=== PATIENT | female | born 1975 | race Caucasian/White ===

== ENCOUNTER 2018-05-08 15:34 | Emergency (ER) | payer MEDICARE, OTHER ==
[2018-05-08 15:43] VITALS: RESP 18
[2018-05-08 16:11] LABS: Amphetamine Screen,Urine Not Detected (NotDetected); Barbiturate Screen,Urine Not Detected (NotDetected); Benzodiazepines Screen,Urine Detected (NotDetected); Cocaine Screen,Urine Not Detected (NotDetected); Methadone Screen, Urine Not Detected (NotDetected); Opiate Screen,Urine Not Detected (NotDetected); Oxycodone Screen, Urine Not Detected (NotDetected); Phencyclidine Screen,Urine Not Detected (NotDetected); Tricyclic Antidepressant,Urine Not Detected (NotDetected); Urn Cannabinoid Scrn Detected (NotDetected)
--- NOTE | 2018-05-08 16:19 | ED ---
General Adult HPI - General Chief complaint: Psychiatric Symptoms Stated complaint: Mental health, petitioned Time Seen by Provider: 05/08/18 16:00 Source: patient, RN notes reviewed Mode of arrival: ambulatory Limitations: no limitations - History of Present Illness Initial comments: Is a 43-year-old female with a past medical history significant for PTSD and depression and anxiety and schizophrenia. Patient states she's not taking her medications because her mother will given to her. Patient was taken to the group home yesterday and was threatening to kill her self threatening to cut her wrists or jump in front of a semi-. Patient also was in the group home cell and had a bowel movement in the middle of the cell and spreading all over the sanchez. Patient admits to stuff but she says she is doing that because she does not ever medication. Patient states she's can continue having these thoughts if she doesn't get her medications. A petition was filled out at the group home yesterday by a social services manager. Patient denies any physical complaints - Related Data Home Medications Medication Instructions Recorded Confirmed Escitalopram [Lexapro] 20 mg PO DAILY 05/08/18 05/08/18 Gabapentin 800 mg PO BID 05/08/18 05/08/18 Levothyroxine Sodium [Synthroid] 50 mcg PO DAILY 05/08/18 05/08/18 Omeprazole 40 mg PO BID 05/08/18 05/08/18 Sucralfate [Carafate] 1 gm PO ACHS PRN 05/08/18 05/08/18 Ziprasidone [Geodon] 80 mg PO BID 05/08/18 05/08/18 clonazePAM [KlonoPIN] 1 mg PO QID 05/08/18 05/08/18 Allergies Allergy/AdvReac Type Severity Reaction Status Date / Time ketorolac [From Toradol] Allergy Rash/Hives Verified 05/08/18 16:55 Penicillins Allergy Rash/Hives Verified 05/08/18 16:55 prochlorperazine Allergy Unknown Verified 05/08/18 16:55 [From Compazine] Sulfa (Sulfonamide Allergy Rash/Hives Verified 05/08/18 16:55 Antibiotics) Review of Systems ROS Statement: Those systems with pertinent positive or pertinent negative responses have been documented in the HPI. ROS Other: All systems not noted in ROS Statement are negative. Past Medical History Past Medical History: GERD/Reflux, Thyroid Disorder Additional Past Medical History / Comment(s): peptic ulcer History of Any Multi-Drug Resistant Organisms: None Reported Past Surgical History: Appendectomy Past Psychological History: Anxiety, Depression, PTSD, Schizoaffective Disorder Smoking Status: Current every day smoker Past Alcohol Use History: None Reported Past Drug Use History: Marijuana General Exam - General Exam Comments Initial Comments: GENERAL: Patient is well-developed and well-nourished. Patient is nontoxic and well- hydrated and is in mild distress. ENT: Neck is soft and supple. No significant lymphadenopathy is noted. Oropharynx is clear. Moist mucous membranes. Neck has full range of motion without eliciting any pain. EYES: The sclera were anicteric and conjunctiva were pink and moist. Extraocular movements were intact and pupils were equal round and reactive to light. Eyelids were unremarkable. PULMONARY: Unlabored respirations. Good breath sounds bilaterally. CARDIOVASCULAR: There is a regular rate and rhythm without any murmurs gallops or rubs. ABDOMEN: Soft and nontender with normal bowel sounds. SKIN: Skin is clear with no lesions or rashes and otherwise unremarkable. NEUROLOGIC: Patient is alert and oriented x3. Cranial nerves II through XII are grossly intact. Motor and sensory are also intact. Normal speech, volume and content. Symmetrical smile. MUSCULOSKELETAL: Normal extremities with adequate strength and full range of motion. LYMPHATICS: No significant lymphadenopathy is noted PSYCHIATRIC: Patient is very anxious and does admit that she is making suicidal statements and does admit that she was spreading her stool all over the cell yesterday Limitations: no limitations Course Vital Signs 05/08/18 05/08/18 15:38 18:41 Temperature 98.5 F 98.6 F Pulse Rate 53 L 55 L Respiratory 18 18 Rate Blood Pressure 104/54 88/52 O2 Sat by Pulse 98 97 Oximetry Medical Decision Making - Medical Decision Making EPS evaluated the patient and decided the patient needs to be admitted. Patient received Geodon 20 mg IM. A bed was not available at our facility so the patient had be transferred. I at this point filled out a clinical certification. - Lab Data Lab Results 05/08/18 05/08/18 Range/Units 15:53 15:53 Urine HCG, Qual Not Detected (Not Detectd) Urine Opiates Screen Not Detected (NotDetected) Ur Oxycodone Screen Not Detected (NotDetected) Urine Methadone Screen Not Detected (NotDetected) Ur Propoxyphene Screen Not Detected (NotDetected) Ur Barbiturates Screen Not Detected (NotDetected) U Tricyclic Antidepress Not Detected (NotDetected) Ur Phencyclidine Scrn Not Detected (NotDetected) Ur Amphetamines Screen Not Detected (NotDetected) U Methamphetamines Scrn Not Detected (NotDetected) U Benzodiazepines Scrn Detected H (NotDetected) Urine Cocaine Screen Not Detected (NotDetected) U Marijuana (THC) Screen Detected H (NotDetected) Disposition Clinical Impression: Chronic schizophrenia, Noncompliance with medication regimen Disposition: TRANSFER TO PSYCH HOSP/UNIT Referrals: None,Stated [Primary Care Provider] - 1-2 days Time of Disposition: 18:07
[2018-05-08] MEDS ORDERED: ZIPRASIDONE 20 MG VIAL IM STA (17:29)
[2018-05-08 20:55] LABS: HCT 45.4 % (34.0-46.0); HGB 14.6 gm/dL (11.4-16.0); MCH 29.7 pg (25.0-35.0); MCV 92.8 fL (80.0-100.0); Mean Platelet Volume 7.8; Platelet Count 205 k/uL (150-450); RDW 14.6 % (11.5-15.5); WBC 7.8 k/uL (3.8-10.6)
[2018-05-08 21:04] LABS: ALT 18 U/L (9-52); AST 13 U/L (14-36); Albumin 3.5 g/dL (3.5-5.0); Alkaline Phosphatase 79 U/L (38-126); Anion Gap 5 mmol/L; Blood Urea Nitrogen 12 mg/dL (7-17); Calcium 9.5 mg/dL (8.4-10.2); Carbon Dioxide 25 mmol/L (22-30); Chloride 112 mmol/L (98-107); Glucose 86 mg/dL (74-99); Sodium 142 mmol/L (137-145); Total Bilirubin 0.4 mg/dL (0.2-1.3)
[2018-05-08 21:10] LABS: Eosinophils # (M) 0.23 k/uL (0-0.7); Monocytes # (M) 0.47 k/uL (0-1.0); Neutrophils % (M) 59 %; Nucleated Red Blood Cells 0 /100 WBC (0-0); Total Cells Counted 100
[2018-05-09] MEDS ORDERED: ZIPRASIDONE 20 MG VIAL IM STA ×2 (00:49→01:13)
[2018-05-09 00:54] VITALS: BP 105/52; PULSE 50
[2018-05-09 01:54] VITALS: TEMP 98.4
== END 2018-05-09 01:40 ==
LOC: EC 15:34
DX: F20.9 Schizophrenia, unspecified (principal); Z91.19 Patient's noncompliance with other medical treatment and regimen; E07.9 Disorder of thyroid, unspecified; K21.9 Gastro-esophageal reflux disease without esophagitis; F41.9 Anxiety disorder, unspecified; F32.9 Major depressive disorder, single episode, unspecified; F17.200 Nicotine dependence, unspecified, uncomplicated; Z79.890 Hormone replacement therapy; Z79.899 Other long term (current) drug therapy; Z88.0 Allergy status to penicillin; Z88.2 Allergy status to sulfonamides; Z88.6 Allergy status to analgesic agent; Z88.8 Allergy status to other drugs, medicaments and biological substances
CPT/HCPCS: 36415; 93005; 80053; 84443; 85025; 81025; 80306; 99285; 96372 ×2; J3486; 82075

== ENCOUNTER 2018-06-14 11:51 | Emergency (ER) | payer MEDICARE, OTHER ==
[2018-06-14 12:02] VITALS: TEMP 98.2
[2018-06-14] MEDS ORDERED: ONDANSETRON 4 MG/2 ML VIAL IVP STA (12:45)
[2018-06-14] MEDS ORDERED: PANTOPRAZOLE 40 MG/10 ML VIAL IVP STA (12:45)
[2018-06-14] MEDS ORDERED: HYDROmorphone 0.5 MG/0.5 ML SYRINGE IVP STA (12:45)
[2018-06-14] MEDS ORDERED: SODIUM CHLORIDE 0.9% 1,000 ML IV STA (12:45)
--- NOTE | 2018-06-14 12:59 | ED ---
Abdominal Pain HPI - General Chief Complaint: Abdominal Pain Stated Complaint: gallbladder problem Time Seen by Provider: 06/14/18 12:03 Source: patient, RN notes reviewed, old records reviewed Mode of arrival: ambulatory Limitations: no limitations - History of Present Illness Initial Comments: Patient is a 43-year-old female presents stating that she complaint of onset of right upper quadrant abdominal pain starting today. She reports she pushes un able bladder tack. Patients that she's been having history of abdominal pain in the right upper quadrant off and on for the past 3 years. She reports she had A FEW YEARS AGO WHICH DIAGNOSED WITH GALLBLADDER SLUDGE. SHE NEVER FOLLOWED UP WITH SURGEON. SHE STATES SHE'S BEEN TEETHING WITH HER ATTACKS BUT AT HOME AND CHANGING HER DIET. SHE STATES TODAY THE PAIN IS MORE SEVERE THAN IT HAS EVER BEEN. SHE REPORTS SOME EPISODES OF VOMITING PRIOR TO ARRIVAL. - Related Data Home Medications Medication Instructions Recorded Confirmed Escitalopram [Lexapro] 20 mg PO DAILY 05/08/18 05/08/18 Gabapentin 800 mg PO BID 05/08/18 05/08/18 Levothyroxine Sodium [Synthroid] 50 mcg PO DAILY 05/08/18 05/08/18 Omeprazole 40 mg PO BID 05/08/18 05/08/18 Sucralfate [Carafate] 1 gm PO ACHS PRN 05/08/18 05/08/18 Ziprasidone [Geodon] 80 mg PO BID 05/08/18 05/08/18 clonazePAM [KlonoPIN] 1 mg PO QID 05/08/18 05/08/18 Previous Rx's Medication Instructions Recorded Ciprofloxacin HCl [Cipro] 500 mg PO Q12HR #14 tab 06/14/18 Ondansetron Odt [Zofran Odt] 4 mg PO Q8HR PRN #12 tab 06/14/18 Allergies Allergy/AdvReac Type Severity Reaction Status Date / Time ketorolac [From Toradol] Allergy Rash/Hives Verified 06/14/18 12:02 Penicillins Allergy Rash/Hives Verified 06/14/18 12:02 prochlorperazine Allergy Unknown Verified 06/14/18 12:02 [From Compazine] Sulfa (Sulfonamide Allergy Rash/Hives Verified 06/14/18 12:02 Antibiotics) Review of Systems ROS Statement: Those systems with pertinent positive or pertinent negative responses have been documented in the HPI. ROS Other: All systems not noted in ROS Statement are negative. Past Medical History Past Medical History: GERD/Reflux, Thyroid Disorder Additional Past Medical History / Comment(s): peptic ulcer History of Any Multi-Drug Resistant Organisms: None Reported Past Surgical History: Appendectomy Past Psychological History: Anxiety, Depression, PTSD, Schizoaffective Disorder Smoking Status: Current every day smoker Past Alcohol Use History: None Reported Past Drug Use History: Marijuana General Exam - General Exam Comments Initial Comments: This is a 43-year-old female. Alert and oriented. Patient appearsin no distress. Limitations: no limitations General appearance: alert, in no apparent distress Head exam: Present: atraumatic, normocephalic, normal inspection Eye exam: Present: normal appearance, PERRL, EOMI. Absent: scleral icterus, conjunctival injection, periorbital swelling ENT exam: Present: normal exam, mucous membranes moist Neck exam: Present: normal inspection. Absent: tenderness, meningismus, lymphadenopathy Respiratory exam: Present: normal lung sounds bilaterally. Absent: respiratory distress, wheezes, rales, rhonchi, stridor Cardiovascular Exam: Present: regular rate, normal rhythm, normal heart sounds. Absent: systolic murmur, diastolic murmur, rubs, gallop, clicks GI/Abdominal exam: Present: soft, tenderness (Significant right upper quadrant tenderness.), normal bowel sounds. Absent: distended, guarding, rebound, rigid Extremities exam: Present: normal inspection, full ROM, normal capillary refill. Absent: tenderness, pedal edema, joint swelling, calf tenderness Back exam: Present: normal inspection Neurological exam: Present: alert, oriented X3, CN II-XII intact Psychiatric exam: Present: normal affect, normal mood Skin exam: Present: warm, dry, intact, normal color. Absent: rash Course Vital Signs 06/14/18 06/14/18 06/14/18 11:59 13:34 14:00 Temperature 98.2 F Pulse Rate 73 56 L 55 L Respiratory 18 18 15 Rate Blood Pressure 117/80 109/63 123/68 O2 Sat by Pulse 97 97 99 Oximetry 06/14/18 06/14/18 14:40 15:15 Temperature Pulse Rate 54 L 64 Respiratory 15 15 Rate Blood Pressure 96/52 96/53 O2 Sat by Pulse 98 99 Oximetry Medical Decision Making - Medical Decision Making 43-year-old female says the nausea and right-sided abdominal pain. Concern for gallbladder from. Lab work was reviewed and unremarkable. She does have significant UTI and exam. Discussed the patient's symptoms of these related to kidney infection. Patient was given a dose of Rocephin. Advised follow-up with primary care doctor. Discussed strict return parameters. All questions answered. - Lab Data Result diagrams: 06/14/18 13:25 06/14/18 13:25 Lab Results 06/14/18 06/14/18 06/14/18 Range/Units 13:25 13:25 13:25 WBC 11.7 H (3.8-10.6) k/uL RBC 4.78 (3.80-5.40) m/uL Hgb 14.2 (11.4-16.0) gm/dL Hct 43.4 (34.0-46.0) % MCV 90.9 (80.0-100.0) fL MCH 29.8 (25.0-35.0) pg MCHC 32.8 (31.0-37.0) g/dL RDW 16.8 H (11.5-15.5) % Plt Count 251 (150-450) k/uL Neutrophils % [employer] Neutrophils % (Manual) 62 % Lymphocytes % [employer] Lymphocytes % (Manual) 29 % Monocytes % [employer] Monocytes % (Manual) 6 % Eosinophils % [employer] Eosinophils % (Manual) 3 % Basophils % [employer] Neutrophils # [employer] Neutrophils # (Manual) 7.25 (1.3-7.7) k/uL Lymphocytes # [employer] Lymphocytes # (Manual) 3.39 (1.0-4.8) k/uL Monocytes # [employer] Monocytes # (Manual) 0.70 (0-1.0) k/uL Eosinophils # [employer] Eosinophils # (Manual) 0.35 (0-0.7) k/uL Basophils # [employer] Nucleated RBCs 0 (0-0) /100 WBC Manual Slide Review Performed Anisocytosis Slight Sodium 141 (137-145) mmol/L Potassium 4.0 (3.5-5.1) mmol/L Chloride 110 H (98-107) mmol/L Carbon Dioxide 25 (22-30) mmol/L Anion Gap 6 mmol/L BUN 8 (7-17) mg/dL Creatinine 0.61 (0.52-1.04) mg/dL Est GFR (CKD-EPI)AfAm >90 (>60 ml/min/1.73 sqM) Est GFR (CKD-EPI)NonAf >90 (>60 ml/min/1.73 sqM) Glucose 76 (74-99) mg/dL Calcium 9.3 (8.4-10.2) mg/dL Total Bilirubin 0.3 (0.2-1.3) mg/dL AST 18 (14-36) U/L ALT 33 (9-52) U/L Alkaline Phosphatase 80 (38-126) U/L Total Protein 6.7 (6.3-8.2) g/dL Albumin 4.1 (3.5-5.0) g/dL Amylase <30 L (30-110) U/L Lipase 69 (23-300) U/L Urine Color Light Yellow Urine Appearance Turbid H (Clear) Urine pH 6.5 (5.0-8.0) Ur Specific [place] 1.014 (1.001-1.035) Urine Protein Trace H (Negative) Urine Glucose (UA) Negative (Negative) Urine Ketones Trace H (Negative) Urine Blood Trace H (Negative) Urine Nitrite Negative (Negative) Urine Bilirubin Negative (Negative) Urine Urobilinogen <2.0 (<2.0) mg/dL Ur Leukocyte Esterase Large H (Negative) Urine RBC 42 H (0-5) /hpf Urine WBC >182 H (0-5) /hpf Urine WBC Clumps Moderate H (None) /hpf Ur Squamous Epith Cells 26 H (0-4) /hpf Urine Bacteria Rare H (None) /hpf - Radiology Data Radiology results: report reviewed Negative gallbladder ultrasound. Disposition Clinical Impression: UTI (urinary tract infection) Disposition: HOME SELF-CARE Condition: Good Instructions (If sedation given, give patient instructions): Urinary Tract Infection in Women (ED) Additional Instructions: Patient advised to follow-up with primary care doctor within the next 1-2 days. Take the antibiotics as prescribed. Have close follow-up and return to [facility] if any alarming signs or symptoms occur. Prescriptions: Ciprofloxacin HCl [Cipro] 500 mg PO Q12HR #14 tab Ondansetron Odt [Zofran Odt] 4 mg PO Q8HR PRN #12 tab PRN Reason: Nausea Is patient prescribed a controlled substance at d/c from ED?: No Referrals: [facility] [Primary Care Provider] - 1-2 days Time of Disposition: 15:31
[2018-06-14 13:56] LABS: Anisocytosis Slight; HCT 43.4 % (34.0-46.0); HGB 14.2 gm/dL (11.4-16.0); MCH 29.8 pg (25.0-35.0); MCHC 32.8 g/dL (31.0-37.0); MCV 90.9 fL (80.0-100.0); Mean Platelet Volume 7.4; Platelet Count 251 k/uL (150-450); RBC 4.78 m/uL (3.80-5.40); RDW 16.8 % (11.5-15.5); WBC 11.7 k/uL (3.8-10.6)
[2018-06-14 14:01] VITALS: RESP 15
[2018-06-14 14:07] LABS: ALT 33 U/L (9-52); AST 18 U/L (14-36); Albumin 4.1 g/dL (3.5-5.0); Alkaline Phosphatase 80 U/L (38-126); Amylase <30 U/L (30-110); Anion Gap 6 mmol/L; Blood Urea Nitrogen 8 mg/dL (7-17); Calcium 9.3 mg/dL (8.4-10.2); Carbon Dioxide 25 mmol/L (22-30); Chloride 110 mmol/L (98-107); Eosinophils # (M) 0.35 k/uL (0-0.7); Glucose 76 mg/dL (74-99); Lipase 69 U/L (23-300); Lymphocytes # (M) 3.39 k/uL (1.0-4.8); Neutrophils # (M) 7.25 k/uL (1.3-7.7); Neutrophils % (M) 62 %; Nucleated Red Blood Cells 0 /100 WBC (0-0); Sodium 141 mmol/L (137-145); Total Bilirubin 0.3 mg/dL (0.2-1.3); Total Cells Counted 100; Total Protein 6.7 g/dL (6.3-8.2)
--- NOTE | 2018-06-14 14:45 | US ---
EXAMINATION TYPE: US gallbladder DATE OF EXAM: 06/14/2018 COMPARISON: NONE CLINICAL HISTORY: Pain. abd pain, patient states she had sludge in GB 2 yrs ago EXAM MEASUREMENTS: Liver Length: 14.9 cm Gallbladder Wall: 0.2 cm CBD: 0.6 cm Right Kidney: 9.6 x 4.6 x 4.6 cm Pancreas: wnl Liver: wnl Gallbladder: neck fold, wnl Evidence for sonographic Varela's sign: no CBD: wnl Right Kidney: wnl IMPRESSION: Negative right upper quadrant abdominal sonogram. No gallstones or dilated ducts.
[2018-06-14 15:03] LABS: Appearance,Urine Turbid (Clear); Bacteria,Urine Rare /hpf; Bilirubin,Urine Negative (Negative); Blood,Urine Trace (Negative); Color,Urine Light Yellow; Glucose,Urine (UA) Negative (Negative); Ketones,Urine Trace (Negative); Leukocyte Esterase,Urine Large (Negative); Nitrite,Urine Negative (Negative); PH, Urine 6.5 (5.0-8.0); Protein,Urine Trace (Negative); RBC,Urine 42 /hpf (0-5); Specific Gravity,Urine 1.014 (1.001-1.035); Squamous Epithelial Cell,Urine 26 /hpf (0-4); Urobilinogen,Urine <2.0 mg/dL (<2.0); WBC,Urine >182 /hpf (0-5)
[2018-06-14] MEDS ORDERED: cefTRIAXone IN SWFI 1,000 MG/10 ML SYRINGE IVP STA (15:12)
[2018-06-14 15:27] VITALS: BP 96/53; PULSE 64
== END 2018-06-14 15:40 | disposition home or self-care (01) ==
LOC: EC 11:51
DX: N39.0 Urinary tract infection, site not specified (principal); K21.9 Gastro-esophageal reflux disease without esophagitis; E07.9 Disorder of thyroid, unspecified; F41.9 Anxiety disorder, unspecified; F32.9 Major depressive disorder, single episode, unspecified; F25.9 Schizoaffective disorder, unspecified; F17.200 Nicotine dependence, unspecified, uncomplicated; Z79.890 Hormone replacement therapy; Z79.899 Other long term (current) drug therapy; Z88.0 Allergy status to penicillin; Z88.2 Allergy status to sulfonamides; Z88.5 Allergy status to narcotic agent; Z88.8 Allergy status to other drugs, medicaments and biological substances
CPT/HCPCS: 36415; 80053; 82150; 83690; 85025; 81001; 87086; 76705; 99284; 96374; 96375 ×3; 96361; J2405; J0696; C9113; J1170

== ENCOUNTER → 2018-07-16 | Outpatient (CLI) | payer MEDICARE, OTHER ==
[2018-07-16 07:29] LABS: Anisocytosis Slight; HCT 45.1 % (34.0-46.0); HGB 14.4 gm/dL (11.4-16.0); MCH 30.2 pg (25.0-35.0); MCV 94.3 fL (80.0-100.0); Mean Platelet Volume 7.9; Platelet Count 192 k/uL (150-450); RBC 4.79 m/uL (3.80-5.40); WBC 8.2 k/uL (3.8-10.6)
[2018-07-16 07:57] LABS: Eosinophils # (M) 0.25 k/uL (0-0.7); Lymphocytes # (M) 1.89 k/uL (1.0-4.8); Monocytes # (M) 0.33 k/uL (0-1.0); Neutrophils # (M) 5.74 k/uL (1.3-7.7); Neutrophils % (M) 70 %; Nucleated Red Blood Cells 0 /100 WBC (0-0); Total Cells Counted 100
[2018-07-16 07:58] LABS: Poikilocytosis (M) Present
[2018-07-16 11:45] LABS: Vitamin D 25 Hydroxy 28.7 ng/mL (30.0-100.0)
[2018-07-16 11:46] LABS: Albumin/Globulin Ratio 2.22 (1.60-3.17); Anion Gap 3.5 mmol/L (4.00-12.00); Calcium 8.5 mg/dL (8.7-10.3); Carbon Dioxide 27.5 mmol/L (21.6-31.8); Globulin 1.8 g/dL (1.6-3.3); LDL Cholesterol,Calculated 106.2 mg/dL (0.0-131.0); Magnesium 2.1 mg/dL (1.5-2.4); Total Bilirubin 0.2 mg/dL (0.3-1.2); Total Protein 5.8 g/dL (6.2-8.2); VLDL Calculation 14.8 mg/dL (5.00-40.00)
[2018-07-16 11:53] LABS: T4, Free (Free Thyroxine) 1.3 ng/dL (0.80-1.80)
[2018-07-16 12:50] LABS: Hepatitis A Antibody IgM Non-Reactive (Non-Reactive); Hepatitis B Core IgM Non-Reactive (Non-Reactive)
[2018-07-16 12:53] LABS: Hemoglobin A1C 5.5 % (4.0-6.0)
== END ==
LOC: LABWHC1 06:37
PROVIDERS: ATTEND Nurse Practitioner
DX: Z13.9 Encounter for screening, unspecified (principal); Z79.899 Other long term (current) drug therapy
CPT/HCPCS: 36415; 80053; 80061; 80074; 82306; 82607; 83036; 83735; 84439; 84443; 85025

== ENCOUNTER 2018-09-15 15:14 | Emergency (ER) | payer MEDICARE, OTHER ==
[2018-09-15 15:18] VITALS: BP 104/70; PULSE 65; RESP 18; TEMP 98.5
--- NOTE | 2018-09-15 15:30 | ED ---
Psych HPI - General Source: patient, RN notes reviewed, old records reviewed Mode of arrival: ambulatory - History of Present Illness MD Complaint: other (no complaints) -: unknown Associated Psychiatric Symptoms: none History of same: Yes Quality: constant Improves With: none Associated Symptoms: denies other symptoms Treatments Prior to Arrival: none <Narciso Arredondo - Last Filed: 09/15/18 15:21> <Jose Schilling - Last Filed: 09/15/18 20:28> - General Chief Complaint: Psychiatric Symptoms Stated Complaint: mental health Time Seen by Provider: 09/15/18 15:20 - History of Present Illness Initial Comments: This is a 43-year-old female the ER for evaluation. Patient resents today for evaluation regards to psychiatric illness. Patient's brought in by pediatric of prior for missing appointments with psychiatrist. Patient denies homicidal or suicidal thoughts and tingling all medications as prescribed (Narciso Arredondo) - Related Data Home Medications Medication Instructions Recorded Confirmed Escitalopram [Lexapro] 20 mg PO DAILY 05/08/18 09/15/18 Sucralfate [Carafate] 1 gm PO ACHS PRN 05/08/18 09/15/18 Butalb/Acetaminophen/Caffeine 1 tab PO TID PRN 09/15/18 09/15/18 [Fioricet 50-325-40] Cholecalciferol [Vitamin D3 (25 5,000 unit PO DAILY 09/15/18 09/15/18 Mcg = 1000 Iu)] Gabapentin [Neurontin] 600 mg PO TID 09/15/18 09/15/18 Levothyroxine Sodium [Synthroid] 75 mcg PO DAILY 09/15/18 09/15/18 Multivitamins, Thera [Multivitamin 1 tab PO DAILY 09/15/18 09/15/18 (formulary)] Omeprazole 20 mg PO BID 09/15/18 09/15/18 busPIRone HCL 10 mg PO TID 09/15/18 09/15/18 traZODone HCL 200 mg PO HS 09/15/18 09/15/18 Allergies Allergy/AdvReac Type Severity Reaction Status Date / Time ketorolac [From Toradol] Allergy Rash/Hives Verified 09/15/18 15:41 Penicillins Allergy Rash/Hives Verified 09/15/18 15:41 prochlorperazine Allergy Unknown Verified 09/15/18 15:41 [From Compazine] Sulfa (Sulfonamide Allergy Rash/Hives Verified 09/15/18 15:41 Antibiotics) Review of Systems ROS Other: All systems not noted in ROS Statement are negative. <Narciso Arredondo - Last Filed: 09/15/18 15:21> ROS Other: All systems not noted in ROS Statement are negative. <Jose Schilling - Last Filed: 09/15/18 20:28> ROS Statement: Those systems with pertinent positive or pertinent negative responses have been documented in the HPI. Past Medical History Past Medical History: GERD/Reflux, Thyroid Disorder Additional Past Medical History / Comment(s): peptic ulcer History of Any Multi-Drug Resistant Organisms: None Reported Past Surgical History: Appendectomy Past Psychological History: Anxiety, Depression, PTSD, Schizoaffective Disorder Smoking Status: Current every day smoker Past Alcohol Use History: None Reported Past Drug Use History: Marijuana <Narciso Arredondo - Last Filed: 09/15/18 15:21> General Exam Limitations: no limitations General appearance: alert, in no apparent distress Head exam: Present: atraumatic, normocephalic, normal inspection Eye exam: Present: normal appearance, PERRL, EOMI. Absent: scleral icterus, conjunctival injection, periorbital swelling ENT exam: Present: normal exam, mucous membranes moist Neck exam: Present: normal inspection. Absent: tenderness, meningismus, lymphadenopathy Respiratory exam: Present: normal lung sounds bilaterally. Absent: respiratory distress, wheezes, rales, rhonchi, stridor Cardiovascular Exam: Present: regular rate, normal rhythm, normal heart sounds. Absent: systolic murmur, diastolic murmur, rubs, gallop, clicks GI/Abdominal exam: Present: soft, normal bowel sounds. Absent: distended, tend erness, guarding, rebound, rigid Extremities exam: Present: normal inspection, full ROM, normal capillary refill. Absent: tenderness, pedal edema, joint swelling, calf tenderness Back exam: Present: normal inspection Neurological exam: Present: alert, oriented X3, CN II-XII intact Psychiatric exam: Present: normal affect, normal mood Skin exam: Present: warm, dry, intact, normal color. Absent: rash <Narciso Arredondo - Last Filed: 09/15/18 15:21> Course <Narciso Arredondo - Last Filed: 09/15/18 15:21> Vital Signs 09/15/18 15:15 Temperature 98.5 F Pulse Rate 65 Respiratory 18 Rate Blood Pressure 104/70 O2 Sat by Pulse 99 Oximetry - Reevaluation(s) Reevaluation #1: 09/15/18 15:29 Medically clear for psychiatric evaluation (Narciso Arredondo) Medical Decision Making <Jose Schilling - Last Filed: 09/15/18 20:28> - Medical Decision Making Patient was seen by mental health services with plan for discharge. Patient reevaluated by myself, Dr. Schilling. Patient is resting comfortably in bed. Patient denies suicidal ideation and does contract for safety. (Jose Schilling) Disposition <Narciso Arredondo - Last Filed: 09/15/18 15:21> Is patient prescribed a controlled substance at d/c from ED?: No Time of Disposition: 20:28 <Jose Schilling - Last Filed: 09/15/18 20:28> Clinical Impression: Depression Disposition: HOME SELF-CARE Condition: Stable Instructions (If sedation given, give patient instructions): Depression (ED), Schizoaffective Disorder (ED) Additional Instructions: Please follow-up with primary care physician in the next day or 2 for recheck. Please follow-up with mental health services as directed. Do not miss appointments. Return for thoughts of self-harm, worsening symptoms or other concerns. Referrals: [facility] [Primary Care Provider] - 1-2 days
[2018-09-15] MEDS ORDERED: BUTALB/APAP/CAFF 50-325-40MG TAB PO STA (17:06)
[2018-09-15] MEDS ORDERED: BUTA/APAP/CAF/COD 50-325-40-30 CAP PO STA (17:06)
== END 2018-09-15 20:38 | disposition home or self-care (01) ==
LOC: EC 15:14
DX: F25.1 Schizoaffective disorder, depressive type (principal); K21.9 Gastro-esophageal reflux disease without esophagitis; E07.9 Disorder of thyroid, unspecified; F41.9 Anxiety disorder, unspecified; F43.10 Post-traumatic stress disorder, unspecified; F17.200 Nicotine dependence, unspecified, uncomplicated; Z79.890 Hormone replacement therapy; Z79.899 Other long term (current) drug therapy; Z88.6 Allergy status to analgesic agent; Z88.0 Allergy status to penicillin; Z88.8 Allergy status to other drugs, medicaments and biological substances; Z88.2 Allergy status to sulfonamides
CPT/HCPCS: 82075; 99284

== ENCOUNTER 2018-09-21 17:44 | Emergency (ER) | payer MEDICARE, OTHER ==
[2018-09-21 17:55] VITALS: RESP 18; TEMP 98.7
[2018-09-21] MEDS ORDERED: METOCLOPRAMIDE 5 MG/ML 2 ML VIAL IVP STA (18:21)
[2018-09-21] MEDS ORDERED: SODIUM CHLORIDE 0.9% 1,000 ML IV STA (18:21)
[2018-09-21] MEDS ORDERED: diphenhydrAMINE 50 MG/ML 1 ML VIAL IVP STA (18:22)
[2018-09-21] MEDS ORDERED: HYDROmorphone 0.5 MG/0.5 ML SYRINGE IVP STA (18:22)
--- NOTE | 2018-09-21 18:46 | ED ---
General Adult HPI - General Chief complaint: Abdominal Pain Stated complaint: Fall-Nausea, Vomiting Time Seen by Provider: 09/21/18 18:08 Source: EMS Mode of arrival: EMS Limitations: no limitations - History of Present Illness Initial comments: 43-year-old female patient presents to the emergency department today for evaluation of headache and vomiting. Patient states 3 days ago she was reaching up onto the fridge for a bagel when next thing she knew she was lying on the floor on her right side. Patient believes that she had a syncopal episode at this time. Patient states that she has had a terrible headache since the incident. States that the right side of her head hurts and is radiating down into her neck. Patient denies any blurred or double vision but states she is unable to wear her glasses because it makes her headache worse. She denies any dizziness, weakness, numbness, or tingling to her extremities. She denies any chest pain or shortness of breath. States she has been quite nauseated with the headache and did vomit one time today. She did take Tylenol for pain yesterday but it did not help. She denies any other injuries. Patient denies any recent rash, fever, chills, abdominal pain, diarrhea, constipation, back pain, numbness, tingling, dizziness, weakness, hematuria, dysuria, urinary urgency, urinary frequency, or any other complaints. - Related Data Home Medications Medication Instructions Recorded Confirmed Escitalopram [Lexapro] 20 mg PO DAILY 05/08/18 09/21/18 Sucralfate [Carafate] 1 gm PO ACHS PRN 05/08/18 09/21/18 Cholecalciferol [Vitamin D3 (25 5,000 unit PO DAILY 09/15/18 09/21/18 Mcg = 1000 Iu)] Gabapentin [Neurontin] 600 mg PO TID 09/15/18 09/21/18 Levothyroxine Sodium [Synthroid] 75 mcg PO DAILY 09/15/18 09/21/18 Omeprazole 20 mg PO BID 09/15/18 09/21/18 busPIRone HCL 10 mg PO TID 09/15/18 09/21/18 traZODone HCL 200 mg PO HS 09/15/18 09/21/18 Butalb/APAP/Caff 50-325-40Mg 1 tab PO BID 09/21/18 09/21/18 [Fioricet 50-325-40] clonazePAM [KlonoPIN] 1 mg PO QID 09/21/18 09/21/18 Allergies Allergy/AdvReac Type Severity Reaction Status Date / Time ketorolac [From Toradol] Allergy Rash/Hives Verified 09/15/18 15:41 morphine Allergy Rash/Hives Verified 09/21/18 18:12 Penicillins Allergy Rash/Hives Verified 09/15/18 15:41 prochlorperazine Allergy Unknown Verified 09/15/18 15:41 [From Compazine] Sulfa (Sulfonamide Allergy Rash/Hives Verified 09/15/18 15:41 Antibiotics) Review of Systems ROS Statement: Those systems with pertinent positive or pertinent negative responses have been documented in the HPI. ROS Other: All systems not noted in ROS Statement are negative. Past Medical History Past Medical History: GERD/Reflux, Thyroid Disorder Additional Past Medical History / Comment(s): peptic ulcer History of Any Multi-Drug Resistant Organisms: None Reported Past Surgical History: Appendectomy Past Psychological History: Anxiety, Depression, PTSD, Schizoaffective Disorder Smoking Status: Current every day smoker Past Alcohol Use History: None Reported Past Drug Use History: Marijuana General Exam Limitations: no limitations General appearance: alert, in no apparent distress, other (Physical well- developed, well-nourished adult female patient in no acute distress. Vital signs upon presentation are temperature 98.7F, pulse 52, respirations 18, blood pressure 108/65, pulse ox 96% on room air.) Eye exam: Present: normal appearance, PERRL, EOMI. Absent: scleral icterus, conjunctival injection, nystagmus, periorbital swelling ENT exam: Present: normal exam, normal oropharynx, mucous membranes moist Neck exam: Present: normal inspection, full ROM. Absent: tenderness, meningismus, lymphadenopathy Respiratory exam: Present: normal lung sounds bilaterally. Absent: respiratory distress, wheezes, rales, rhonchi, stridor Cardiovascular Exam: Present: regular rate, normal rhythm, normal heart sounds. Absent: systolic murmur, diastolic murmur, rubs, gallop, clicks GI/Abdominal exam: Present: soft, normal bowel sounds. Absent: distended, tenderness, guarding, rebound, rigid Neurological exam: Present: alert, oriented X3, CN II-XII intact Psychiatric exam: Present: normal affect, normal mood Skin exam: Present: warm, dry, intact, normal color. Absent: rash Course Vital Signs 09/21/18 09/21/18 09/21/18 17:50 18:58 20:46 Temperature 98.7 F Pulse Rate 52 L 52 L 44 L Respiratory 18 18 18 Rate Blood Pressure 108/65 114/59 94/48 O2 Sat by Pulse 96 98 98 Oximetry Medical Decision Making - Medical Decision Making 43-year-old female patient presented to the emergency department today for evaluation of headache and nausea. Patient reportedly had a syncopal episode 3 days ago causing a head injury. Physical examination was unremarkable. She is neurologically intact with no focal deficits. Labs reviewed and were unremarkable. CT brain without contrast was obtained and showed no acute abnormalities. Patient was given several medications to help headache. Upon reevaluation patient states her headache is no better but is requesting to be discharged home. Discuss findings and results with her. She does have a history of migraine headaches, she stopped taking her medication, she is instructed to follow-up with her primary care physician for reevaluation and discuss perhaps restarting these meds. She is instructed to follow-up within 1- 2 days. She is instructed to return immediately for any new, worsening, or concerning symptoms. She verbalizes understanding and agrees this plan. - Lab Data Result diagrams: 09/21/18 18:45 09/21/18 18:45 Lab Results 09/21/18 09/21/18 09/21/18 Range/Units 18:45 18:45 18:58 WBC 8.0 (3.8-10.6) k/uL RBC 4.32 (3.80-5.40) m/uL Hgb 12.8 (11.4-16.0) gm/dL Hct 40.3 (34.0-46.0) % MCV 93.3 (80.0-100.0) fL MCH 29.6 (25.0-35.0) pg MCHC 31.8 (31.0-37.0) g/dL RDW 13.7 (11.5-15.5) % Plt Count 223 (150-450) k/uL Neutrophils % (Manual) 61 % Lymphocytes % (Manual) 31 % Monocytes % (Manual) 4 % Eosinophils % (Manual) 4 % Neutrophils # (Manual) 4.88 (1.3-7.7) k/uL Lymphocytes # (Manual) 2.48 (1.0-4.8) k/uL Monocytes # (Manual) 0.32 (0-1.0) k/uL Eosinophils # (Manual) 0.32 (0-0.7) k/uL Nucleated RBCs 0 (0-0) /100 WBC Manual Slide Review Performed Sodium 140 (137-145) mmol/L Potassium 3.6 (3.5-5.1) mmol/L Chloride 113 H (98-107) mmol/L Carbon Dioxide 22 (22-30) mmol/L Anion Gap 5 mmol/L BUN 7 (7-17) mg/dL Creatinine 0.63 (0.52-1.04) mg/dL Est GFR (CKD-EPI)AfAm >90 (>60 ml/min/1.73 sqM) Est GFR (CKD-EPI)NonAf >90 (>60 ml/min/1.73 sqM) Glucose 82 (74-99) mg/dL Calcium 8.6 (8.4-10.2) mg/dL Total Bilirubin 0.2 (0.2-1.3) mg/dL AST 14 (14-36) U/L ALT 13 (9-52) U/L Alkaline Phosphatase 78 (38-126) U/L Total Protein 5.9 L (6.3-8.2) g/dL Albumin 3.4 L (3.5-5.0) g/dL Amylase <30 L (30-110) U/L Lipase 33 (23-300) U/L Urine Color Colorless Urine Appearance Cloudy H (Clear) Urine pH 6.5 (5.0-8.0) Ur Specific Chauvin 1.004 (1.001-1.035) Urine Protein Negative (Negative) Urine Glucose (UA) Negative (Negative) Urine Ketones Negative (Negative) Urine Blood Negative (Negative) Urine Nitrite Negative (Negative) Urine Bilirubin Negative (Negative) Urine Urobilinogen <2.0 (<2.0) mg/dL Ur Leukocyte Esterase Large H (Negative) Urine RBC 11 H (0-5) /hpf Urine WBC 34 H (0-5) /hpf Ur Squamous Epith Cells 26 H (0-4) /hpf Amorphous Sediment Rare H (None) /hpf Urine Bacteria Rare H (None) /hpf Urine HCG, Qual (Not Detectd) 09/21/18 Range/Units 18:58 WBC (3.8-10.6) k/uL RBC (3.80-5.40) m/uL Hgb (11.4-16.0) gm/dL Hct (34.0-46.0) % MCV (80.0-100.0) fL MCH (25.0-35.0) pg MCHC (31.0-37.0) g/dL RDW (11.5-15.5) % Plt Count (150-450) k/uL Neutrophils % (Manual) % Lymphocytes % (Manual) % Monocytes % (Manual) % Eosinophils % (Manual) % Neutrophils # (Manual) (1.3-7.7) k/uL Lymphocytes # (Manual) (1.0-4.8) k/uL Monocytes # (Manual) (0-1.0) k/uL Eosinophils # (Manual) (0-0.7) k/uL Nucleated RBCs (0-0) /100 WBC Manual Slide Review Sodium (137-145) mmol/L Potassium (3.5-5.1) mmol/L Chloride (98-107) mmol/L Carbon Dioxide (22-30) mmol/L Anion Gap mmol/L BUN (7-17) mg/dL Creatinine (0.52-1.04) mg/dL Est GFR (CKD-EPI)AfAm (>60 ml/min/1.73 sqM) Est GFR (CKD-EPI)NonAf (>60 ml/min/1.73 sqM) Glucose (74-99) mg/dL Calcium (8.4-10.2) mg/dL Total Bilirubin (0.2-1.3) mg/dL AST (14-36) U/L ALT (9-52) U/L Alkaline Phosphatase (38-126) U/L Total Protein (6.3-8.2) g/dL Albumin (3.5-5.0) g/dL Amylase (30-110) U/L Lipase (23-300) U/L Urine Color Urine Appearance (Clear) Urine pH (5.0-8.0) Ur Specific Chauvin (1.001-1.035) Urine Protein (Negative) Urine Glucose (UA) (Negative) Urine Ketones (Negative) Urine Blood (Negative) Urine Nitrite (Negative) Urine Bilirubin (Negative) Urine Urobilinogen (<2.0) mg/dL Ur Leukocyte Esterase (Negative) Urine RBC (0-5) /hpf Urine WBC (0-5) /hpf Ur Squamous Epith Cells (0-4) /hpf Amorphous Sediment (None) /hpf Urine Bacteria (None) /hpf Urine HCG, Qual Not Detected (Not Detectd) - Radiology Data Radiology results: report reviewed, image reviewed CT brain without contrast was obtained. Report was reviewed in its entirety. Impression by Dr. Wood shows negative computed tomography scan of the brain. Disposition Clinical Impression: Migraine headache Disposition: HOME SELF-CARE Condition: Good Instructions (If sedation given, give patient instructions): Migraine Headache (ED) Additional Instructions: Increase fluids. Rest. Follow-up with your primary care physician for recheck in 1-2 days. Return to the emergency department immediately for any new, worsening, or concerning symptoms. Is patient prescribed a controlled substance at d/c from ED?: No Referrals: [facility] [Primary Care Provider] - 1-2 days Time of Disposition: 21:33
[2018-09-21 19:17] LABS: ALT 13 U/L (9-52); AST 14 U/L (14-36); African American GFR (CKD) >90 (>60 ml/min/1.73 sqM); Albumin 3.4 g/dL (3.5-5.0); Alkaline Phosphatase 78 U/L (38-126); Amylase <30 U/L (30-110); Anion Gap 5 mmol/L; Blood Urea Nitrogen 7 mg/dL (7-17); Calcium 8.6 mg/dL (8.4-10.2); Carbon Dioxide 22 mmol/L (22-30); Chloride 113 mmol/L (98-107); Glucose 82 mg/dL (74-99); Lipase 33 U/L (23-300); Potassium 3.6 mmol/L (3.5-5.1); Sodium 140 mmol/L (137-145); Total Bilirubin 0.2 mg/dL (0.2-1.3); Total Protein 5.9 g/dL (6.3-8.2)
[2018-09-21 19:21] LABS: Amorphous Sediment,Urine Rare /hpf; Appearance,Urine Cloudy (Clear); Bacteria,Urine Rare /hpf; Bilirubin,Urine Negative (Negative); Blood,Urine Negative (Negative); Color,Urine Colorless; Glucose,Urine (UA) Negative (Negative); Ketones,Urine Negative (Negative); Leukocyte Esterase,Urine Large (Negative); Nitrite,Urine Negative (Negative); PH, Urine 6.5 (5.0-8.0); Protein,Urine Negative (Negative); RBC,Urine 11 /hpf (0-5); Specific Gravity,Urine 1.004 (1.001-1.035); Squamous Epithelial Cell,Urine 26 /hpf (0-4); Urobilinogen,Urine <2.0 mg/dL (<2.0); WBC,Urine 34 /hpf (0-5)
--- NOTE | 2018-09-21 19:35 | CT ---
EXAMINATION TYPE: CT brain wo con DATE OF EXAM: 09/21/2018 COMPARISON: None HISTORY: fall, syncopal episode CT DLP: 1106.4 mGycm. Automated Exposure Control for Dose Reduction was Utilized. TECHNIQUE: CT scan of the head is performed without contrast. FINDINGS: Ventricles and sulci appear normal. There is no mass effect nor midline shift. There is no sign of intracranial hemorrhage. The calvarium is intact. There is some debris in the external audito ry canals. IMPRESSION: Negative CT scan of the brain.
[2018-09-21 19:50] LABS: HCT 40.3 % (34.0-46.0); HGB 12.8 gm/dL (11.4-16.0); MCH 29.6 pg (25.0-35.0); MCHC 31.8 g/dL (31.0-37.0); MCV 93.3 fL (80.0-100.0); Mean Platelet Volume 8.1; Platelet Count 223 k/uL (150-450); RBC 4.32 m/uL (3.80-5.40); RDW 13.7 % (11.5-15.5)
[2018-09-21] MEDS ORDERED: DEXAMETHASONE SOD PHOSPHATE 10 MG/ML 1 ML VIAL IV STA (19:53)
[2018-09-21] MEDS ORDERED: CAFFEINE-SODIUM BENZOATE 500 MG in SODIUM CHLORIDE 0.9% 1,000 ML IVPB ONE (19:53)
[2018-09-21] MEDS ORDERED: ACETAMINOPHEN TAB 500 MG TAB PO STA (19:56)
[2018-09-21 20:37] LABS: Eosinophils # (M) 0.32 k/uL (0-0.7); Lymphocytes # (M) 2.48 k/uL (1.0-4.8); Monocytes # (M) 0.32 k/uL (0-1.0); Neutrophils # (M) 4.88 k/uL (1.3-7.7); Neutrophils % (M) 61 %; Nucleated Red Blood Cells 0 /100 WBC (0-0); Total Cells Counted 100
[2018-09-21 20:49] VITALS: BP 94/48; PULSE 44
== END 2018-09-21 21:53 | disposition home or self-care (01) ==
LOC: EC 17:44
DX: G43.909 Migraine, unspecified, not intractable, without status migrainosus (principal); K21.9 Gastro-esophageal reflux disease without esophagitis; E07.9 Disorder of thyroid, unspecified; F32.9 Major depressive disorder, single episode, unspecified; F25.9 Schizoaffective disorder, unspecified; F41.9 Anxiety disorder, unspecified; F43.10 Post-traumatic stress disorder, unspecified; F17.200 Nicotine dependence, unspecified, uncomplicated; Z79.890 Hormone replacement therapy; Z79.899 Other long term (current) drug therapy; Z88.0 Allergy status to penicillin; Z88.2 Allergy status to sulfonamides; Z88.5 Allergy status to narcotic agent; Z88.6 Allergy status to analgesic agent; Z90.49 Acquired absence of other specified parts of digestive tract; Z53.29 Procedure and treatment not carried out because of patient's decision for other reasons
CPT/HCPCS: 36415; 80053; 82150; 83690; 85025; 81001; 81025; 87086; 70450; 99284; 96365; 96375 ×4; 96361; J1200; J1100; J2765; J1170

== ENCOUNTER 2018-09-23 03:01 | Emergency (ER) | payer MEDICARE, OTHER ==
[2018-09-23 03:22] VITALS: BP 124/71; TEMP 98.2
[2018-09-23] MEDS ORDERED: METOCLOPRAMIDE 5 MG/ML 2 ML VIAL IVP STA (03:26)
[2018-09-23] MEDS ORDERED: SODIUM CHLORIDE 0.9% 1,000 ML IV ONE (03:26)
[2018-09-23] MEDS ORDERED: diphenhydrAMINE 50 MG/ML 1 ML VIAL IVP STA (03:26)
--- NOTE | 2018-09-23 03:28 | ED ---
General Adult HPI - General Chief complaint: Recheck/Abnormal Lab/Rx Stated complaint: head/neck pain Time Seen by Provider: 09/23/18 03:08 Source: patient, EMS Mode of arrival: EMS Limitations: no limitations - History of Present Illness Initial comments: Brenda is a 43-year-old female with extensive past medical history most significant for psychiatric illness as well as seizure disorder and chronic migraines. Patient was seen and evaluated for psychiatric illness yesterday. Patient reports that she's been having worsening migraines and occasional syncopal episodes. Patient reports that she had one yesterday fell and hit her head prior to being evaluated. During her evaluation she did have a head CT which was unremarkable. Patient reports that since her fall yesterday she developed progressively worsening achy neck pain and she has had a headache that has persisted. Patient reports that she sought care at an outside hospital but they did nothing for her so she left called an ambulance and came here for reevaluation. Upon transfer to the hospital was noted the patient was bradycardic with a heart rate of 37-38. Patient reports she always has a slow heart rate however reviewing her chart from yesterday her rate was 60s during her evaluation. - Related Data Home Medications Medication Instructions Recorded Confirmed Escitalopram [Lexapro] 20 mg PO DAILY 05/08/18 09/21/18 Sucralfate [Carafate] 1 gm PO ACHS PRN 05/08/18 09/21/18 Cholecalciferol [Vitamin D3 (25 5,000 unit PO DAILY 09/15/18 09/21/18 Mcg = 1000 Iu)] Gabapentin [Neurontin] 600 mg PO TID 09/15/18 09/21/18 Levothyroxine Sodium [Synthroid] 75 mcg PO DAILY 09/15/18 09/21/18 Omeprazole 20 mg PO BID 09/15/18 09/21/18 busPIRone HCL 10 mg PO TID 09/15/18 09/21/18 traZODone HCL 200 mg PO HS 09/15/18 09/21/18 Butalb/APAP/Caff 50-325-40Mg 1 tab PO BID 09/21/18 09/21/18 [Fioricet 50-325-40] clonazePAM [KlonoPIN] 1 mg PO QID 07/21/19 07/21/19 Allergies Allergy/AdvReac Type Severity Reaction Status Date / Time ketorolac [From Toradol] Allergy Rash/Hives Verified 09/15/18 15:41 morphine Allergy Rash/Hives Verified 09/21/18 18:12 Penicillins Allergy Rash/Hives Verified 09/15/18 15:41 prochlorperazine Allergy Unknown Verified 09/15/18 15:41 [From Compazine] Sulfa (Sulfonamide Allergy Rash/Hives Verified 09/15/18 15:41 Antibiotics) Review of Systems ROS Statement: Those systems with pertinent positive or pertinent negative responses have been documented in the HPI. ROS Other: All systems not noted in ROS Statement are negative. Past Medical History Past Medical History: GERD/Reflux, Seizure Disorder, Thyroid Disorder Additional Past Medical History / Comment(s): peptic ulcer History of Any Multi-Drug Resistant Organisms: None Reported Past Surgical History: Appendectomy Past Psychological History: Anxiety, Depression, PTSD, Schizoaffective Disorder Smoking Status: Current every day smoker Past Alcohol Use History: None Reported Past Drug Use History: Marijuana General Exam - General Exam Comments Initial Comments: Physical Exam GENERAL: Patient is well-developed and well-nourished. Appears older than stated age HENT: Normocephalic, Atraumatic. EYES: PERRL, EOMI PULMONARY: Unlabored respirations. No audible rales rhonchi or wheezing was noted. CARDIOVASCULAR: bradycardic, regular ABDOMEN: Soft and nontender with normal bowel sounds. SKIN: Skin is clear with no lesions or rashes and otherwise unremarkable. : Deferred NEUROLOGIC: Patient is alert and oriented x3. Moving all extremities spontaneously MUSCULOSKELETAL: Normal extremities with adequate strength and full range of motion. No lower extremity swelling or edema. No calf tenderness. 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 EKG obtained at 3:17am rate is 37 rhythm is sinus bradycardia there is normal axis, normal intervals, AL 126, QRS 92, QTc 395 there is no acute ST elevations or depressions or evidence of acute ischemia or infarction. Medical Decision Making - Medical Decision Making The patient was seen and evaluated, history was obtained from patient and review of medical record Labs and imaging were ordered I was addressed by the nurse who states that the patient is demanding that she be given IV Dilaudid. When I return to the patient's room to advise her that I will not treat her recurrent pain with IV Dilaudid until her workup feels acute pathology which would warrant IV Dilaudid. Patient states that she will not consent to an IV and does not want any further care if she cannot have IV Dilaudid now. States that she would like to leave because she has pain medications at home that she would rather take. I did discuss with the patient that she has a very low heart rate and I would recommend further evaluation of this. Patient states that she's had a low heart rate in the past this isn't concerning for her and she understands the risks patient would like to leave. Patient was then seen walking out of the emergency department cursing very loudly and yelling. Patient was demanding a cab ride home. We advised the patient that we can contact the Service for her however the hospital will not pay for a cab ride home because she is leaving AMA Disposition Clinical Impression: Migraine headache Disposition: HOME SELF-CARE Condition: Undetermined Is patient prescribed a controlled substance at d/c from ED?: No Referrals: [facility] [Primary Care Provider] - 1-2 days
[2018-09-23 04:44] VITALS: PULSE 39
[2018-09-23 05:12] VITALS: RESP 17
== END 2018-09-23 04:22 | disposition home or self-care (01) ==
LOC: EC 03:01
DX: G43.909 Migraine, unspecified, not intractable, without status migrainosus (principal); R00.1 Bradycardia, unspecified; M54.2 Cervicalgia; K21.9 Gastro-esophageal reflux disease without esophagitis; G40.909 Epilepsy, unspecified, not intractable, without status epilepticus; E07.9 Disorder of thyroid, unspecified; F32.9 Major depressive disorder, single episode, unspecified; F41.9 Anxiety disorder, unspecified; F17.200 Nicotine dependence, unspecified, uncomplicated; Z88.0 Allergy status to penicillin; Z88.2 Allergy status to sulfonamides; Z88.5 Allergy status to narcotic agent; Z88.6 Allergy status to analgesic agent; Z88.8 Allergy status to other drugs, medicaments and biological substances; Z79.890 Hormone replacement therapy; Z79.891 Long term (current) use of opiate analgesic; Z79.899 Other long term (current) drug therapy; W19.XXXA Unspecified fall, initial encounter; Z53.29 Procedure and treatment not carried out because of patient's decision for other reasons
CPT/HCPCS: 99283

== ENCOUNTER 2018-09-27 22:01 | Emergency (ER) | payer MEDICARE, OTHER ==
[2018-09-27 23:17] LABS: Appearance,Urine Cloudy (Clear); Bacteria,Urine Many /hpf; Bilirubin,Urine Negative (Negative); Blood,Urine Negative (Negative); Color,Urine Colorless; Glucose,Urine (UA) Negative (Negative); Ketones,Urine Negative (Negative); Leukocyte Esterase,Urine Large (Negative); Mucus,Urine Rare /hpf; Nitrite,Urine Negative (Negative); Protein,Urine Negative (Negative); RBC,Urine 16 /hpf (0-5); Specific Gravity,Urine 1.008 (1.001-1.035); Squamous Epithelial Cell,Urine 61 /hpf (0-4); Urobilinogen,Urine <2.0 mg/dL (<2.0); WBC,Urine 142 /hpf (0-5)
[2018-09-27 23:21] LABS: Amphetamine Screen,Urine Not Detected (NotDetected); Barbiturate Screen,Urine Detected (NotDetected); Benzodiazepines Screen,Urine Not Detected (NotDetected); Cocaine Screen,Urine Not Detected (NotDetected); Methadone Screen, Urine Not Detected (NotDetected); Opiate Screen,Urine Not Detected (NotDetected); Oxycodone Screen, Urine Not Detected (NotDetected); Phencyclidine Screen,Urine Not Detected (NotDetected); Tricyclic Antidepressant,Urine Not Detected (NotDetected); Urn Cannabinoid Scrn Detected (NotDetected)
[2018-09-27] MEDS: ACETAMINOPHEN TAB 325 MG TAB PO STA ×2 (23:43→23:50)
[2018-09-27] MEDS ORDERED: diphenhydrAMINE 50 MG/ML 1 ML VIAL IM STA (23:49)
[2018-09-27] MEDS ORDERED: LORazepam 2 MG/ML INJ IM STA (23:49)
[2018-09-27] MEDS ORDERED: HALOPERIDOL LACTATE 5 MG/ML 1 ML VIAL IM STA (23:50)
[2018-09-27 23:53] LABS: African American GFR (CKD) >90 (>60 ml/min/1.73 sqM); Alcohol <10 mg/dL; Anion Gap 6 mmol/L; Blood Urea Nitrogen 7 mg/dL (7-17); Carbon Dioxide 24 mmol/L (22-30); Chloride 110 mmol/L (98-107); Glucose 85 mg/dL (74-99); Non-African American GFR(CKD) >90 (>60 ml/min/1.73 sqM); Potassium 3.5 mmol/L (3.5-5.1); Sodium 140 mmol/L (137-145)
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
[2018-09-28] MEDS ORDERED: cefTRIAXone 1,000 MG VIAL (IM USE) IM STA (00:17)
[2018-09-28] MEDS ORDERED: LORazepam 2 MG/ML INJ IM STA (00:21)
[2018-09-28] MEDS ORDERED: BUTALB/APAP/CAFF 50-325-40MG TAB PO PRN (12:33)
[2018-09-28] MEDS ORDERED: GABAPENTIN 300 MG CAP PO ONE (12:45)
[2018-09-28] MEDS ORDERED: LEVOTHYROXINE 75 MCG TAB PO ONE (12:45)
[2018-09-28] MEDS ORDERED: ESCITALOPRAM 20 MG TAB PO ONE (12:45)
[2018-09-28 13:15] VITALS: BP 130/86; PULSE 70; RESP 14; TEMP 98.2
[2018-09-29 11:46] LABS: Chlamydia trachomatis rRNA Not detected (Not detected); Neisseria gonorrhoeae rRNA Not detected (Not detected)
== END 2018-09-28 13:16 | disposition home or self-care (01) ==
LOC: EC 22:01
DX: N39.0 Urinary tract infection, site not specified (principal); F25.1 Schizoaffective disorder, depressive type; R45.851 Suicidal ideations; K21.9 Gastro-esophageal reflux disease without esophagitis; G40.909 Epilepsy, unspecified, not intractable, without status epilepticus; E07.9 Disorder of thyroid, unspecified; F41.9 Anxiety disorder, unspecified; F43.10 Post-traumatic stress disorder, unspecified; F17.200 Nicotine dependence, unspecified, uncomplicated; Z79.890 Hormone replacement therapy; Z79.899 Other long term (current) drug therapy; Z88.6 Allergy status to analgesic agent; Z88.5 Allergy status to narcotic agent; Z88.0 Allergy status to penicillin; Z88.8 Allergy status to other drugs, medicaments and biological substances; Z88.2 Allergy status to sulfonamides
CPT/HCPCS: 99285 ×2; 96372 ×6; 82075; 36415; 80048; 87491; 81001; 81025; 80306; 87086; G0480; J2060; J1200; J1630; J0696; 80320

== ENCOUNTER 2018-10-01 20:27 | Emergency (ER) | payer MEDICARE, OTHER ==
[2018-10-01 20:33] VITALS: TEMP 98.9
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
[2018-10-02 00:32] VITALS: BP 128/79; PULSE 75; RESP 17
== END 2018-10-02 00:31 | disposition home or self-care (01) ==
LOC: EC 20:27
DX: Z04.6 Encounter for general psychiatric examination, requested by authority (principal); F25.9 Schizoaffective disorder, unspecified; Z91.14 Patient's other noncompliance with medication regimen; K21.9 Gastro-esophageal reflux disease without esophagitis; G40.909 Epilepsy, unspecified, not intractable, without status epilepticus; E07.9 Disorder of thyroid, unspecified; F32.9 Major depressive disorder, single episode, unspecified; F41.9 Anxiety disorder, unspecified; F17.200 Nicotine dependence, unspecified, uncomplicated; Z88.0 Allergy status to penicillin; Z88.2 Allergy status to sulfonamides; Z88.5 Allergy status to narcotic agent; Z88.6 Allergy status to analgesic agent; Z88.8 Allergy status to other drugs, medicaments and biological substances; Z79.890 Hormone replacement therapy; Z79.899 Other long term (current) drug therapy
CPT/HCPCS: 82075; 99284